=== PATIENT | female | born 1955 | race Hispanic/Latino ===

== ENCOUNTER 2016-12-09 19:51 | Emergency (ER) | payer OTHER ==
[2016-12-09 19:57] VITALS: BP 151/92; PULSE 87; RESP 18; TEMP 98.2; O2SAT 98
--- NOTE | 2016-12-09 20:14 | ED PDOC ---
Lower Extremity Pain/Injury Time Seen by Provider: 12/09/16 19:53 Chief Complaint (Nursing): Lower Extremity Problem/Injury Chief Complaint (Provider): Lower Extremity Problem/Injury History Per: Patient History/Exam Limitations: no limitations Onset/Duration Of Symptoms: Mins (prior to arrival) Current Symptoms Are (Timing): Still Present Additional Complaint(s): Ynes Roca is a 61 year old female who presents to the emergency department via EMS for an evaluation of right foot pain associated with swelling status post tripping on a shopping basket in [employer] prior to arrival. Patient stated she heard a "pop" as she fell into a couch and took Motrin for pain relief. PMD: none provided Past Medical History Reviewed: Historical Data, Nursing Documentation, Vital Signs Vital Signs: Last Vital Signs Temp 98.2 F 12/09/16 19:55 Pulse 87 12/09/16 19:55 Resp 18 12/09/16 19:55 BP 151/92 H 12/09/16 19:55 Pulse Ox 98 12/09/16 19:55 - Family History Family History: States: Unknown Family Hx - Social History Current smoker - smoking cessation education provided: No Alcohol: None Drugs: Denies - Allergies Allergies/Adverse Reactions: Allergies Allergy/AdvReac Type Severity Reaction Status Date / Time Penicillins Allergy RASH Verified 12/09/16 19:54 scallops Allergy RASH Verified 12/09/16 19:54 Review of Systems ROS Statement: Except As Marked, All Systems Reviewed And Found Negative Musculoskeletal: Positive for: Foot Pain (right foot associated with swelling) Physical Exam - Reviewed Nursing Documentation Reviewed: Yes Vital Signs Reviewed: Yes - Physical Exam Appears: Positive for: Well, Non-toxic, No Acute Distress Head Exam: Positive for: ATRAUMATIC, NORMAL INSPECTION, NORMOCEPHALIC Skin: Positive for: Normal Color, Warm, DRY Eye Exam: Positive for: Normal appearance ENT: Positive for: Normal ENT Inspection Neck: Positive for: Normal, Painless ROM Respiratory: Negative for: Accessory Muscle Use, Respiratory Distress Back: Positive for: Normal Inspection Extremity: Positive for: Tenderness (Lateral foot and ankle). Negative for: Normal ROM (Limits in the right ankle due to pain) Neurologic/Psych: Positive for: Alert, Oriented - ECG O2 Sat by Pulse Oximetry: 98 (RA) Pulse Ox Interpretation: Normal Medical Decision Making Medical Decision Making: Initial Impression: Right foot pain Initial Plan: * Xray ankle (right) * Xray foot (right) Time: 2115 --Splint applied to right foot Scribe Attestation: Documented by Hellen Bates, acting as a scribe for Tessy Jade PA-C. Provider Scribe Attestation: All medical record entries made by the Scribe were at my direction and personally dictated by me. I have reviewed the chart and agree that the record accurately reflects my personal performance of the history, physical exam, medical decision making, and the department course for this patient. I have also personally directed, reviewed, and agree with the discharge instructions and disposition. Disposition - Clinical Impression Clinical Impression: Ankle injury - Patient ED Disposition Is Patient to be Admitted: No Counseled Patient/Family Regarding: Diagnosis, Need For Followup - Disposition Referrals: Marisol Zacarias MD [Staff Provider] - Disposition: Routine/Home Disposition Time: 22:12 Condition: GOOD Additional Instructions: Please follow-up with orthopedics. Instructions: Ankle Sprain (ED) Forms: [employer] (Armenian)
--- NOTE | 2016-12-10 08:30 | RAD ---
PROCEDURE: Right Ankle Radiographs. HISTORY: lateral foot and ankle pain, s/p twisting COMPARISON: None FINDINGS: BONES: Normal. No fracture. JOINTS: Normal. No osteoarthritis. Ankle mortise maintained. Talar dome intact SOFT TISSUES: Lateral soft tissue swelling without distal fibular or talar abnormality. OTHER FINDINGS: None. IMPRESSION: Soft tissue swelling without acute articular or osseous abnormality.
--- NOTE | 2016-12-10 08:31 | RAD ---
PROCEDURE: Right Foot Radiographs. HISTORY: foot pain, lateral s/p twisting COMPARISON: December 10, 2016. Right ankle reported separately FINDINGS: BONES: Normal. No fracture. JOINTS: Normal. SOFT TISSUES: Normal. OTHER FINDINGS: None. IMPRESSION: No acute findings related to/accounting for the clinical presentation.
== END 2016-12-09 23:09 | disposition home or self-care (01) ==
LOC: H.ER 19:51
DX: S99.911A Unspecified injury of right ankle, initial encounter (principal); W22.8XXA Striking against or struck by other objects, initial encounter; Y92.513 Shop (commercial) as the place of occurrence of the external cause